=== PATIENT | male | born 1995 | race Caucasian/White ===

== ENCOUNTER → 2019-12-06 10:41 | Outpatient (BNVA) | payer SELFPAY | PROVIDERS: Family Provider Nurse Practitioner Family; PCP Nurse Practitioner Family; Referring Provider Nurse Practitioner Family; Visit Provider Nurse Practitioner Family | DX: S69.90XA Unspecified injury of unspecified wrist, hand and finger(s), initial encounter (principal) | CPT/HCPCS: 73130 ==

== ENCOUNTER 2019-12-08 12:09 | Outpatient (CLI) | payer SELFPAY | END 2019-12-08 12:10 | disposition home or self-care (01) | LOC: SPT 12:10 | PROVIDERS: Family Provider Nurse Practitioner Family; PCP Nurse Practitioner Family; Visit Provider Specialist | DX: Z46.89 Encounter for fitting and adjustment of other specified devices (principal); S62.396D Other fracture of fifth metacarpal bone, right hand, subsequent encounter for fracture with routine healing; X58.XXXD Exposure to other specified factors, subsequent encounter | CPT/HCPCS: L3984 ==

== ENCOUNTER 2019-12-14 09:55 | Outpatient (CLI) | payer SELFPAY ==
--- NOTE | 2019-12-14 10:00 | CT_ITS ---
WS: [id number] NONCONTRAST CT OF THE RIGHT HAND TECHNIQUE: Noncontrast CT right and with coronal and sagittal reformatted images. CLINICAL INFORMATION: fracture COMPARISON: Radiograph December 06, 2019 DLP: [id number] scans at [facility] use at least one of these dose optimization techniques: automat ed exposure control; mA and/or kV adjustment per patient size (includes targeted exams where dose is matched to clinical indication); or iterative reconstruction. FINDINGS: Radiograph December 06, 2019 reviewed. Again seen is the comminuted fracture involving the dorsal aspect of the hamate with fragmentation extending to the articular surface at the base of the fifth metacar pal. Slightly displaced comminuted fracture fragments. A few additional tiny fragments in the fourth- fifth metacarpal space. This may arise from the base of the fifth metacarpal or displaced from the still mate. No definite avulsion site at the base of the fifth metacarpal. Normal scaphoid and lunate. Normal piriform. No other visualized fractures.Normal radiocarpal joint. Distal ulna appears normal. CT/CT hand RT wo con* [id number] IMPRESSION: 1. Comminuted fracture with fragmentation involving the dorsal aspect of the h amate with slightly displaced fragments. 2. Small avulsed fragments in the fourth/fifth intercarpal space may be from t he base of the fifth metacarpal or displaced from the hamate fracture 3. No other visualized fractures. 4. Normal scaphoid and lunate. 1. Normal radiocarpal joint. Normal scapholunate interval.
== END 2019-12-14 09:56 | disposition home or self-care (01) ==
LOC: RADWPI 10:03
PROVIDERS: Family Provider Nurse Practitioner Family; PCP Nurse Practitioner Family; Visit Provider Specialist
DX: S62.306A Unspecified fracture of fifth metacarpal bone, right hand, initial encounter for closed fracture (principal); X58.XXXA Exposure to other specified factors, initial encounter
CPT/HCPCS: 73200